=== PATIENT | male | born 1950 | race Caucasian/White ===

== ENCOUNTER 2019-03-28 09:57 | Emergency (ER) | payer MEDICARE, OTHER ==
[~2019-03-28] VITALS: Ht 172.7 cm; Wt 90.9 kg
[2019-03-28] MEDS ORDERED: METF-960 PO (10:03)
[2019-03-28] MEDS ORDERED: ASPI81 PO (10:03)
[2019-03-28] MEDS ORDERED: LOSA25TA41 PO (10:03)
[2019-03-28] MEDS ORDERED: MORPHINE SULFATE 4 MG/ML SYRINGE IVP ONE (11:30)
[2019-03-28 11:43] LABS: BASOPHILS % (AUTO) 0.5 % (0.0-2.0); EOSINOPHILS % (AUTO) 4.2 % (1.0-6.0); HEMATOCRIT 46.3 % (41-53); HEMOGLOBIN 15.3 g/dL (13.5-17.5); LYMPHOCYTES # (AUTO) 1.1 K/uL (1.0-4.8); LYMPHOCYTES % (AUTO) 10.3 % (22.0-44.0); MEAN CORPUSCULAR HEMOGLOBIN 31.6 pg (26.0-34.0); MEAN CORPUSCULAR VOLUME 96 fL (80-100); MONOCYTES # (AUTO) 0.5 K/uL (0.1-1.0); MONOCYTES % (AUTO) 4.7 % (2.0-9.0); NEUTROPHILS # (AUTO) 8.9 K/uL (1.8-7.7); NEUTROPHILS % (AUTO) 80.3 % (40.0-70.0); PLATELET COUNT (AUTO) 238 K/uL (150-450); RED BLOOD CELL COUNT(AUTO) 4.84 MIL/uL (4.50-5.90); RED CELL DISTRIBUTION WIDTH 13.3 % (11.5-14.5)
[2019-03-28] MEDS ORDERED: IOVERSOL 350 MG/ML 150 ML VIAL ONE (11:50)
[2019-03-28] MEDS ORDERED: SODIUM CHLORIDE 0.9% 100 ML ONE (11:50)
[2019-03-28 11:54] LABS: APPEARANCE,URINE CLEAR (CLEAR); BILIRUBIN,URINE NEGATIVE (NEGATIVE); GLUCOSE, URINE (UA) NEGATIVE (NEGATIVE); KETONES,URINE NEGATIVE (NEGATIVE); LEUKOCYTE ESTERASE ,URINE NEGATIVE (NEGATIVE); NITRATE,URINE NEGATIVE (NEGATIVE); OCCULT BLOOD,URINE SMALL (NEGATIVE); PROTEIN,URINE NEGATIVE (NEGATIVE); UROBILINOGEN,URINE 0.2 mg/dL (<=1.0)
[2019-03-28 12:02] LABS: BACTERIA,URINE None Seen /HPF (None Seen); RBC,URINE 0-2 /HPF (0-2); SQUAMOUS EPITHELIAL CELL,UR Rare /LPF (None Seen); WBC,URINE 0-2 /HPF (0-5)
[2019-03-28 12:12] LABS: ALBUMIN 3.9 g/dL (3.4-5.0); BILIRUBIN,TOTAL 0.5 mg/dL (0.1-1.0); CREATININE 1.34 mg/dL (0.60-1.30); POTASSIUM 4.2 mmol/L (3.5-5.1); TOTAL PROTEIN, SERUM 7.6 g/dL (6.4-8.2)
[2019-03-28] MEDS ORDERED: KETOROLAC TROMETHAMINE 30 MG/ML VIAL IVP ONE (12:45)
[2019-03-28 13:26] VITALS: BP 126/67
== END 2019-03-28 13:31 | disposition home or self-care (01) ==
LOC: EMS 09:58
DX: K57.92 Diverticulitis of intestine, part unspecified, without perforation or abscess without bleeding (principal); N13.2 Hydronephrosis with renal and ureteral calculous obstruction; E11.9 Type 2 diabetes mellitus without complications; E78.00 Pure hypercholesterolemia, unspecified; I10 Essential (primary) hypertension; Z79.82 Long term (current) use of aspirin; Z79.84 Long term (current) use of oral hypoglycemic drugs
CPT/HCPCS: 36415; 74177; 80053; 81001; 82962; 83690; 85025; 96374; 96375; 99284; J1885; J2270; J7050; Q9967